=== PATIENT | female | born 1985 | race Caucasian/White ===

== ENCOUNTER 2016-06-12 22:10 | Emergency (ER) | payer BC ==
[~2016-06-12] VITALS: Ht 165.1 cm; Wt 92.5 kg
[~2016-06-12 22:10] MED LIST: CELEXA20 MG PO; KEFLEX500 MG PO; PERCOCET 5/31 TABLET PO; ZOFRAN4 MG PO
[2016-06-12] MEDS ORDERED: ZANTAC150 MG PO (23:53)
[2016-06-12] MEDS ORDERED: PREDNISONE20 MG PO (23:53)
[2016-06-12] MEDS ORDERED: ATARAX,VISTARIL25 MG PO (23:53)
[2016-06-12] MEDS ORDERED: VIGAMOX 0.60 DROP/3 BOTH EYES (23:54)
[2016-06-13 00:10] VITALS: BP 134/101
== END 2016-06-13 00:23 | disposition home or self-care (01) ==
LOC: EME 22:10 → RME 22:10
DX: T78.40XA Allergy, unspecified, initial encounter (principal)
CPT/HCPCS: 99281; 99284; J7512; Q0177

== ENCOUNTER 2016-10-16 23:59 | Emergency (ER) | payer BC ==
[~2016-10-16] VITALS: Ht 165.1 cm; Wt 113.6 kg
[~2016-10-16 23:59] MED LIST changes: +ATARAX,VISTARIL25 MG PO; +PREDNISONE20 MG PO; +VIGAMOX 0.60 DROP/3 BOTH EYES; +ZANTAC150 MG PO
[2016-10-17 00:47] LABS: HEMATOCRIT 40.6 % (36.0-46.0); MCH 29.6 PG (29.0-34.0); MCV 89.8 FL (83-99); MEAN PLAT.VOLUME 11.2 uM^3 (9.5-12.4); PLATELET COUNT 250 K/uL (156-360); RBC DIS.WIDTH-CV 13.1 % (11.8-14.6); RBC DIS.WIDTH-SD 43.1 % (39-53); RED BLOOD COUNT 4.52 M/uL (3.80-5.20); WHITE BLOOD COUNT 11.3 K/uL (4.1-10.2)
[2016-10-17 01:02] LABS: CHLORIDE 111 mEq/L (99-109); POTASSIUM 3.3 mEq/L (3.7-5.4); SODIUM 142 mEq/L (136-147)
[2016-10-17 01:04] LABS: GLUCOSE 114 mg/dL (70-99)
[2016-10-17 01:05] LABS: ANION GAP 11 MEQ/L (2-14)
[2016-10-17 01:07] LABS: SERUM ETHYL ALCOHOL 310 mg/dL
[2016-10-17 01:08] LABS: GFR ESTIMATE (CALCULATED) > 59 mL/min/
[2016-10-17 01:09] LABS: UREA NITROGEN (BUN) 11 mg/dL (9-23)
[2016-10-17 01:19] LABS: QUANTITATIVE HCG < 4.0 MIU/ML
[2016-10-17 08:12] LABS: ADD MIUA? NO; BILIRUBIN NEGATIVE; BLOOD NEGATIVE; COLOR YELLOW ((YELLOW)); GLUCOSE (STRIP) NEGATIVE; KETONES NEGATIVE; LEUKOCYTES NEGATIVE; NITRITE NEGATIVE; PROTEIN (STRIP) NEGATIVE; SPECIFIC GRAVITY 1.008 (1.000-1.030); UCUL ADDED? NO; UROBILINOGEN 0.2 MG/DL (0.2-1.0)
[2016-10-17 08:34] LABS: AMPHETAMINE NEGATIVE (500 ng/mL); BARBITURATES NEGATIVE (200 ng/mL); BENZODIAZEPINES NEGATIVE (150 ng/mL); COCAINE NEGATIVE (150 ng/mL); INTERNAL CONTROLS VALID? YES; METHADONE NEGATIVE (200 ng/mL); METHAMPHETAMINE NEGATIVE (500 ng/mL); OPIATES (MORPHINE) NEGATIVE (100 ng/mL); OXYCODONE NEGATIVE (100 ng/mL); PHENCYCLIDINE NEGATIVE (25 ng/mL); PROPOXYPHENE NEGATIVE (300 ng/mL); THC CANNABINOIDS NEGATIVE (50 ng/mL); TRICYCLIC ANTIDEPRESSANTS NEGATIVE (300 ng/mL)
[2016-10-17 09:46] VITALS: BP 122/83
== END 2016-10-17 10:01 | disposition home or self-care (01) ==
LOC: EME 23:59
PROVIDERS: Emergency Medicine
DX: F32.9 Major depressive disorder, single episode, unspecified (principal); R45.851 Suicidal ideations; F43.24 Adjustment disorder with disturbance of conduct; F10.129 Alcohol abuse with intoxication, unspecified; Y90.8 Blood alcohol level of 240 mg/100 ml or more; F17.200 Nicotine dependence, unspecified, uncomplicated
CPT/HCPCS: 80048; 81003; 84702; 85027; 90837; 99281; 99284; G0480

== ENCOUNTER 2016-12-17 15:57 | Emergency (ER) | payer SELFPAY ==
[~2016-12-17] VITALS: Ht 165.1 cm; Wt 104.4 kg
[2016-12-17] MEDS ORDERED: NORCO 5/3251 TABLET PO (17:05)
[2016-12-17 17:58] VITALS: BP 134/87
== END 2016-12-17 17:59 | disposition home or self-care (01) ==
LOC: EME 15:57
PROC: 2W3CX1Z Immobilization of Right Lower Arm using Splint (ICD-10-PCS; principal; 2016-12-17)
DX: S62.366A Nondisplaced fracture of neck of fifth metacarpal bone, right hand, initial encounter for closed fracture (principal); M25.531 Pain in right wrist; W18.2XXA Fall in (into) shower or empty bathtub, initial encounter; Y92.002 Bathroom of unspecified non-institutional (private) residence as the place of occurrence of the external cause; F17.200 Nicotine dependence, unspecified, uncomplicated
CPT/HCPCS: 73130; 99281; 99283